=== PATIENT | male | born 1980 | race Caucasian/White ===

== ENCOUNTER 2016-08-24 21:20 | Emergency (ER) | payer SELFPAY ==
[~2016-08-24] VITALS: Ht 182.9 cm; Wt 117.4 kg
[~2016-08-24 21:20] MED LIST: METH10TA4 PO; SERT-234 PO
[2016-08-24 21:23] VITALS: TEMP 36.4; Ht 182.9 cm; Wt 117.4 kg
[2016-08-24] MEDS ORDERED: HydrALAZINE HCL 20 MG/ML VIAL IV. STA (21:39)
--- NOTE | 2016-08-24 21:40 | EMERGENCY ROOM VISIT NOTE ---
History Report prepared by Trudyibsmith: Dick Easton Under the Supervision of: Dr. Desmond Sargent D.O. First contact with patient: 21:29 Chief Complaint: GI ASSESSMENT Stated Complaint: CHEST PAIN, ABD PAIN History of Present Illness The patient is a 36 year old male who presents to the Emergency Room with complaints of worsening chest pain that started approximately 2 hours [employer] SERV[employer]. The pain is localized to the center of his chest and does not radiate. The pain is dull/sharp in nature, and is worsened with exertion. The pain is rated 5 - 6 / 10 in severity. He does not know of any relieving factors at this time. The patient notes that he has been sweaty since onset of pain. He denies shortness of breath or nausea. He believes that he has an ulcer that gives him some abdominal pain, but he does not complain of abdominal pain at this time. 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 The patient has had chest pain before, but not like this. The patient stopped taking his hypertension medications two weeks ago and has not followed up with his PCP since. He does not have a family history of heart disease. Source of History: patient Onset: 2 hours [employer] SERV[employer] ADMINISTR[employer] Position: chest (center) Symptom Intensity: 5 - 6 /10 Quality: sharp, dull Timing: worsening Modifying Factors (Worsening): exertion Associated Symptoms: + diaphoresis, No SOB, No nausea Review of Systems See HPI for pertinent positives and negatives. A total of ten systems were reviewed and were otherwise negative. Past Medical & Surgical Medical Problems: (1) Esophageal Reflux (2) Hypertension Nos (3) Irritable Bowel Syndrome (4) Tobacco Use Disorder Family History Cancer Diabetes mellitus Heart disease Social History Smoking Status: Former Smoker Marital Status: single Occupation Status: employed Current/Historical Medications No Active Prescriptions or Reported Meds Allergies Coded Allergies: No Known Allergies (Verified , NONE, 08/24/16) Physical Exam Vital Signs Date Time Temp Pulse Resp B/P Pulse Ox O2 Delivery O2 Flow Rate FiO2 08/24/16 23:32 156/102 08/24/16 23:29 80 18 189/121 96 Room Air 08/24/16 22:41 90 18 160/110 98 Room Air 08/24/16 21:57 81 18 166/120 99 Room Air 08/24/16 21:50 98 Room Air 08/24/16 21:39 93 08/24/16 21:23 36.4 84 20 175/115 100 Room Air Physical Exam GENERAL: Awake, alert, well-appearing, in no distress HENT: Normocephalic, atraumatic. Oropharynx unremarkable. EYES: Normal conjunctiva. Sclera non-icteric. NECK: Supple. No nuchal rigidity. FROM. No JVD. RESPIRATORY: Clear to auscultation. CARDIAC: Regular rate, normal rhythm. Extremities warm and well perfused. Pulses equal. ABDOMEN: Soft, non-distended. No tenderness to palpation. No rebound or guarding. No masses. RECTAL: Deferred. MUSCULOSKELETAL: Chest examination reveals no tenderness. The back is symmetrical on inspection without obvious abnormality. There is no CVA tenderness to palpation. No joint edema. LOWER EXTREMITIES: Calves are equal size bilaterally and non-tender. No edema. No discoloration. NEURO: Normal sensorium. No sensory or motor deficits noted. SKIN: No rash or jaundice noted. Medical Decision & Procedures ER Provider Diagnostic Interpretation: X-ray: Per my interpretation, radiologist review. SINGLE VIEW CHEST CLINICAL HISTORY: Atypical chest pain. FINDINGS: An AP, portable, upright chest radiograph is compared to study dated 01/14/2014. The examination is degraded by portable technique and apical lordotic positioning. The cardiomediastinal silhouette is unremarkable. The lungs and pleural spaces are clear. No pneumothorax is seen. The bony thorax is grossly intact. IMPRESSION: No active disease in the chest. Electronically signed by: Nick Savage M.D. 08/24/2016 9:58 PM Dictated Date/Time: 08/24/2016 9:58 PM Laboratory Results 08/24/16 21:46 Red Blood Count 5.09, Mean Corpuscular Volume 85.7, Mean Corpuscular Hemoglobin 31.0, Mean Corpuscular Hemoglobin Concent 36.2, Mean Platelet Volume 11.0, Neutrophils (%) (Auto) 57.6, Lymphocytes (%) (Auto) 28.5, Monocytes (%) (Auto) 9.5, Eosinophils (%) (Auto) 3.8, Basophils (%) (Auto) 0.3, Neutrophils # (Auto) 4.97, Lymphocytes # (Auto) 2.46, Monocytes # (Auto) 0.82, Eosinophils # (Auto) 0.33, Basophils # (Auto) 0.03 08/24/16 21:46 08/24/16 22:55 Test 08/24/16 21:46 08/24/16 21:50 08/24/16 22:55 White Blood Count 8.64 K/uL (4.8-10.8) Red Blood Count 5.09 M/uL (4.7-6.1) Hemoglobin 15.8 g/dL (14.0-18.0) Hematocrit 43.6 % (42-52) Mean Corpuscular Volume 85.7 fL (80-100) Mean Corpuscular Hemoglobin 31.0 pg (25-34) Mean Corpuscular Hemoglobin Concent 36.2 g/dl (32-36) Platelet Count 275 K/uL (130-400) Mean Platelet Volume 11.0 fL (7.4-10.4) Neutrophils (%) (Auto) 57.6 % Lymphocytes (%) (Auto) 28.5 % Monocytes (%) (Auto) 9.5 % Eosinophils (%) (Auto) 3.8 % Basophils (%) (Auto) 0.3 % Neutrophils # (Auto) 4.97 K/uL (1.4-6.5) Lymphocytes # (Auto) 2.46 K/uL (1.2-3.4) Monocytes # (Auto) 0.82 K/uL (0.11-0.59) Eosinophils # (Auto) 0.33 K/uL (0-0.5) Basophils # (Auto) 0.03 K/uL (0-0.2) RDW Standard Deviation 39.5 fL (36.4-46.3) RDW Coefficient of Variation 12.5 % (11.5-14.5) Immature Granulocyte % (Auto) 0.3 % Immature Granulocyte # (Auto) 0.03 K/uL (0.00-0.02) Anion Gap 12.0 mmol/L (3-11) Est Creatinine Clear Calc Drug Dose 122.8 ml/min Estimated GFR () 99.6 Estimated GFR (Non- 85.9 BUN/Creatinine Ratio 18.2 (10-20) Calcium Level 9.9 mg/dl (8.5-10.1) Total Bilirubin 0.4 mg/dl (0.2-1) Alanine Aminotransferase (ALT/SGPT) 55 U/L (12-78) Alkaline Phosphatase 65 U/L (45-117) Total Protein 8.0 gm/dl (6.4-8.2) Albumin 4.3 gm/dl (3.4-5.0) Lipase 190 U/L (73-393) Bedside Troponin I 0.000 ng/ml (0-0.045) Direct Bilirubin < 0.1 mg/dl (0-0.2) Aspartate Amino Transf (AST/SGOT) 28 U/L (15-37) Chemistry Specimen Hemolysis Laboratory results reviewed by me Medications Administered Medications (Trade) Dose Ordered Sig/Morris Route Start Time Stop Time Status Last Admin Dose Admin Hydralazine HCl (HydrALAZINE INJ) 10 mg NOW STAT IV. 08/24/16 21:39 08/24/16 21:40 DC 08/24/16 21:52 10 MG ECG Indication: chest pain Rate (beats per minute): 89 Rhythm: normal sinus Findings: no acute ischemic change, other (normal intervals) ED Course 0935: The patient was evaluated in room B5. A complete history and physical exam was performed. 2138: Hydralazine 10 mg IV. 2324: Reassessed the patient. He will receive a GI cocktail before being discharged. Discussed the discharge instructions with the patient. He verbalized understanding and agreement. 8: GI cocktail 24 ml PO. Medical Decision Etiologies such as cardiac ischemia, aortic dissection, pulmonary embolism, pneumonia, pneumothorax, musculoskeletal, infections, gastrointestinal, as well as others were entertained. Patient was given IV hydralazine for his blood pressure which decreased his blood pressure. Patient does not have any current chest pain abdominal pain on reexamination at 2330. Patient states that he's been off his blood pressure medicine for greater than 1 year. Patient also states that he has a history of ulcer, patient was treated with a GI cocktail. Patient will need follow-up with his primary care physician for continued blood pressure management. I will start him on blood pressure medications at this time was on amlodipine in the past. I do not suspect acute coronary syndrome thoracic aortic dissection or pulmonary embolism as etiology of his complaint this evening. I discussed all the workup with the patient patient's significant other at bedside at 2333 Impression Primary Impression: Abdominal pain Additional Impression: Hypertension Nos Scribe Attestation The scribe's documentation has been prepared under my direction and personally reviewed by me in its entirety. I confirm that the note above accurately reflects all work, treatment, procedures, and medical decision making performed by me. Departure Information Dispostion Home / Self-Care Prescriptions Amlodipine (Norvasc) 10 Mg Tab 10 MG PO DAILY, #30 TAB Prov: Desmond Sargent, DO 08/24/16 Referrals No Doctor, Assigned (PCP) Forms HOME CARE DOCUMENTATION FORM, IMPORTANT VISIT INFORMATION Patient Instructions Abdominal Pain, Hypertension Control, My [facility] Health Problem Qualifiers Primary Impression: Abdominal pain Abdominal location: upper abdomen, unspecified Qualified Codes: R10.10 - Upper abdominal pain, unspecified
[2016-08-24 21:50] VITALS: O2SAT 98
[2016-08-24 21:59] LABS: BASO % 0.3 %; BASO ABS # 0.03 K/uL (0-0.2); COMPLETE YES; EOS % 3.8 %; HEMATOCRIT 43.6 % (42-52); IG% 0.3 %; LYMPH % 28.5 %; LYMPH ABS # 2.46 K/uL (1.2-3.4); MEAN CELL VOLUME 85.7 fL (80-100); MEAN CORPUSCULAR HGB CONC 36.2 g/dl (32-36); MONO % 9.5 %; NEUT % 57.6 %; PLATELET COUNT 275 K/uL (130-400); RED BLOOD COUNT 5.09 M/uL (4.7-6.1); WHITE BLOOD COUNT 8.64 K/uL (4.8-10.8)
--- NOTE | 2016-08-24 22:00 | DIAGNOSTIC IMAGING REPORT ---
SINGLE VIEW CHEST CLINICAL HISTORY: Atypical chest pain. FINDINGS: An AP, portable, upright chest radiograph is compared to study dated 01/14/2014. The examination is degraded by portable technique and apical lordotic positioning. The cardiomediastinal silhouette is unremarkable. The lungs and pleural spaces are clear. No pneumothorax is seen. The bony thorax is grossly intact. IMPRESSION: No active disease in the chest. Electronically signed by: Nick Savage M.D. 08/24/2016 9:58 PM Dictated Date/Time: 08/24/2016 9:58 PM
[2016-08-24 22:30] LABS: ALKALINE PHOSPHATASE 65 U/L (45-117); ALT/SGPT 55 U/L (12-78); BLOOD UREA NITROGEN 20 mg/dl (7-18); BUN/CREATININE RATIO 18.2 (10-20); CALCIUM 9.9 mg/dl (8.5-10.1); CARBON DIOXIDE 24 mmol/L (21-32); CHLORIDE 104 mmol/L (98-107); GLUCOSE 88 mg/dl (70-99); SODIUM 140 mmol/L (136-145)
[2016-08-24 23:23] LABS: AST/SGOT 28 U/L (15-37); POTASSIUM 4.3 mmol/L (3.5-5.1)
[2016-08-24] MEDS ORDERED: GI COCKTAIL PO STA (23:28)
[2016-08-24] MEDS ORDERED: LIDOCAINE HCL 2% VISC SOLN 20 ML UDC ONE (23:30)
[2016-08-24] MEDS ORDERED: ALUMINUM/MAGNESIUM SUSP 30 ML UDC ONE (23:30)
[2016-08-24] MEDS ORDERED: AMLO-114 PO (23:38)
[2016-08-25 00:23] VITALS: BP 160/106; PULSE 85; O2SAT 98
== END 2016-08-25 00:36 | disposition home or self-care (01) ==
LOC: C.EDB 21:22
DX: R10.10 Upper abdominal pain, unspecified (principal); I10 Essential (primary) hypertension; K21.9 Gastro-esophageal reflux disease without esophagitis; K58.9 Irritable bowel syndrome, unspecified; Z87.891 Personal history of nicotine dependence

== ENCOUNTER → 2017-05-05 | Outpatient (CLI) | payer OTHER ==
--- NOTE | 2017-05-05 16:25 | DIAGNOSTIC IMAGING REPORT ---
ABDOMEN FOR HERNIA CLINICAL HISTORY: K40.90 Hernia, inguinal, leftR10.9 Abdominal painR/O left inguin pain TECHNIQUE: Ultrasound COMPARISON STUDY: None FINDINGS: The inguinal regions show no evidence for hernia. Medially superior to the umbilicus is a fat-containing hernia having a maximum cross-sectional dimension of 1.5 cm. Intra-abdominal fat protrudes through this region with a greatest linear dimension 3.8 cm. There is no bowel content. IMPRESSION: 1. No evidence for hernia in the inguinal region. 2. Fat-containing midline ventral hernia immediately superior to the umbilicus . The above report was generated using voice recognition software. It may contain grammatical, syntax or spelling errors. Electronically signed by: Justin Jane M.D. 05/05/2017 4:24 PM Dictated Date/Time: 05/05/2017 4:12 PM
== END | disposition home or self-care (01) ==
LOC: C.ULTR 15:35
PROVIDERS: ATTEND Surgery
DX: R10.9 Unspecified abdominal pain (principal); K43.9 Ventral hernia without obstruction or gangrene

== ENCOUNTER → 2017-06-09 | Day surgery (SDC) | payer OTHER ==
[2017-05-15 15:22] VITALS: Ht 175.3 cm; Wt 115.9 kg
[~2017-06-09] VITALS: Ht 175.3 cm; Wt 115.9 kg
[~2017-06-09] MED LIST changes: +ASPCH81X PO; +LISI10TA PO; -METH10TA4 PO; +PRLSR20 PO; +RTL20 PO; -SERT-234 PO
== END | disposition home or self-care (01) ==
LOC: EDSTATUS 07:00 → C.PAT 13:42
PROVIDERS: ATTEND Surgery
DX: K42.9 Umbilical hernia without obstruction or gangrene (principal); M62.08 Separation of muscle (nontraumatic), other site; I10 Essential (primary) hypertension; Z87.891 Personal history of nicotine dependence; Z79.82 Long term (current) use of aspirin; Z82.3 Family history of stroke; Z83.3 Family history of diabetes mellitus; Z82.49 Family history of ischemic heart disease and other diseases of the circulatory system